=== PATIENT | female | born 1975 | race Caucasian/White ===

== ENCOUNTER 2017-01-14 19:53 | Emergency (ER) | payer BC ==
[~2017-01-14 19:53] MED LIST: ASPIRIN CHEWABL81 MG PO; IMDUR ER TAB 3030 MG PO; LISINOPRIL20 MG PO; METFORMIN HYDR500 GM PO; SINGULAIR10 MG PO; VENTOLIN/PROVE0.5 ML INH
[2017-01-14 21:37] LABS: HEMOGLOBIN 12.1 gm/dl (12.3-15.3); RED BLOOD COUNT 4.52 M/UL (4.00-5.10); WHITE BLOOD COUNT 9.7 K/UL (4.5-11.0)
[2017-01-14 21:53] LABS: BUN/CREATININE RATIO 21 (0-10)
[2017-04-25] MEDS ORDERED: DISULFIRAM PO (07:16)
[2017-04-25] MEDS ORDERED: PROTONIX40 MG PO (07:16)
[2017-04-25] MEDS ORDERED: NAPROSYN500 MG PO (11:05)
[2017-04-25] MEDS ORDERED: DOSS PO (11:07)
[2017-04-25] MEDS ORDERED: ZOFRAN4 MG PO (11:08)
[2017-04-25] MEDS ORDERED: PERCOCET 5-3251 EACH PO (11:08)
== END 2017-01-15 00:20 | disposition home or self-care (01) ==
LOC: ER1 19:53
PROVIDERS: Physician Assistant
DX: N93.8 Other specified abnormal uterine and vaginal bleeding (principal); R10.2 Pelvic and perineal pain; R19.7 Diarrhea, unspecified; E11.9 Type 2 diabetes mellitus without complications; I10 Essential (primary) hypertension; Z88.8 Allergy status to other drugs, medicaments and biological substances; Z90.49 Acquired absence of other specified parts of digestive tract; Z79.899 Other long term (current) drug therapy
CPT/HCPCS: 36415; 80048; 80076; 81001; 83690; 84703; 85025; 87086; 99284

== ENCOUNTER 2017-02-05 19:56 | Emergency (ER) | payer BC ==
[2017-04-25] MEDS ORDERED: DISULFIRAM PO (07:16)
[2017-04-25] MEDS ORDERED: PROTONIX40 MG PO (07:16)
[2017-04-25] MEDS ORDERED: NAPROSYN500 MG PO (11:05)
[2017-04-25] MEDS ORDERED: DOSS PO (11:07)
[2017-04-25] MEDS ORDERED: ZOFRAN4 MG PO (11:08)
[2017-04-25] MEDS ORDERED: PERCOCET 5-3251 EACH PO (11:08)
== END 2017-02-05 21:45 | disposition left against medical advice (07) ==
LOC: ER1 19:56
DX: Z53.21 Procedure and treatment not carried out due to patient leaving prior to being seen by health care provider (principal)

== ENCOUNTER → 2017-04-02 | Outpatient (CLI) | payer BC ==
[~2017-04-02] MED LIST changes: +DISULFIRAM PO; +DOSS PO; +NAPROSYN500 MG PO; +PERCOCET 5-3251 EACH PO; +PROTONIX40 MG PO; +ZOFRAN4 MG PO
== END ==
LOC: EMI 07:30
DX: M25.561 Pain in right knee (principal); M17.11 Unilateral primary osteoarthritis, right knee
CPT/HCPCS: 73721

== ENCOUNTER 2020-12-13 20:42 | Emergency (ER) | payer OTHER ==
[2020-12-13] MEDS ORDERED: BACTRIM DS TAB1 EACH PO (21:13)
== END 2020-12-13 21:33 | disposition home or self-care (01) ==
LOC: ER1 20:42
DX: L03.116 Cellulitis of left lower limb (principal); E11.9 Type 2 diabetes mellitus without complications; I10 Essential (primary) hypertension; Z88.8 Allergy status to other drugs, medicaments and biological substances
CPT/HCPCS: 99282

== ENCOUNTER → 2021-01-24 | Outpatient (CLI) | payer BC, OTHER ==
[~2021-01-24] MED LIST changes: +BACTRIM DS TAB1 EACH PO
== END ==
LOC: EXRD 14:26
DX: M79.605 Pain in left leg (principal)
CPT/HCPCS: 93971

== ENCOUNTER → 2021-02-13 | Outpatient (CLI) | payer BC, OTHER | LOC: KOH-I 09:53 | DX: M79.662 Pain in left lower leg (principal); Z47.89 Encounter for other orthopedic aftercare | CPT/HCPCS: 73590 ==

== ENCOUNTER 2021-05-13 18:24 | Emergency (ER) | payer BC ==
[~2021-05-13 18:24] MED LIST changes: -PROTONIX40 MG PO
[2021-05-13 20:08] LABS: HEMOGLOBIN 11.7 gm/dl (12.3-15.3); RED BLOOD COUNT 4.39 M/UL (4.00-5.10); WHITE BLOOD COUNT 4.3 K/UL (4.5-11.0)
[2021-05-13 20:30] LABS: BUN/CREATININE RATIO 11 (0-10)
[2021-05-13] MEDS ORDERED: PREDNISONE50 MG PO (23:54)
[2021-05-13] MEDS ORDERED: VENTOLIN/PROVE0.5 ML INH (23:54)
== END 2021-05-14 00:31 | disposition home or self-care (01) ==
LOC: ER1 18:24
PROVIDERS: Physician Assistant Medical
DX: Z23 Encounter for immunization (principal); U07.1 COVID-19; J12.82 Pneumonia due to coronavirus disease 2019; J45.909 Unspecified asthma, uncomplicated; E11.9 Type 2 diabetes mellitus without complications; E78.5 Hyperlipidemia, unspecified; Z90.89 Acquired absence of other organs; Z88.8 Allergy status to other drugs, medicaments and biological substances
CPT/HCPCS: 71045; 80053; 85025; 99285; M0243; U0002

== ENCOUNTER 2021-05-16 14:12 | Inpatient (IN) | payer BC ==
[~2021-05-16] VITALS: Ht 171.4 cm; Wt 164.7 kg
[~2021-05-16 14:12] MED LIST changes: +PREDNISONE50 MG PO
[2021-05-16 15:39] LABS: HEMOGLOBIN 12.8 gm/dl (12.3-15.3); RED BLOOD COUNT 4.76 M/UL (4.00-5.10)
[2021-05-16 15:41] LABS: WHITE BLOOD COUNT 8.2 K/UL (4.5-11.0)
[2021-05-16 16:03] LABS: BUN/CREATININE RATIO 24 (0-10)
[2021-05-17 06:16] LABS: HEMOGLOBIN 12.3 gm/dl (12.3-15.3); RED BLOOD COUNT 4.63 M/UL (4.00-5.10); WHITE BLOOD COUNT 7.3 K/UL (4.5-11.0)
[2021-05-17 06:44] LABS: BUN/CREATININE RATIO 26 (0-10)
[2021-05-17] MEDS ORDERED: OMEPRAZOLE20 MG PO (07:16)
[2021-05-17] MEDS ORDERED: ALBUTEROL2.5 MG/3 M NEB (10:48)
[2021-05-17] MEDS ORDERED: MOBIC15 MG PO (10:49)
[2021-05-17] MEDS ORDERED: HYDROCHLOROTH12.5 MG PO (10:49)
[2021-05-17] MEDS ORDERED: RANEXA500 MG PO (10:50)
[2021-05-17] MEDS ORDERED: LOPRESSOR 25 MG25 MG PO (10:50)
[2021-05-17] MEDS ORDERED: SINGULAIR10 MG PO (10:50)
[2021-05-17] MEDS ORDERED: ROPINIROLE HCL2 MG PO (10:51)
[2021-05-17] MEDS ORDERED: ULTRAM50 MG PO (10:52)
[2021-05-17] MEDS ORDERED: CYCLOBENZAPRINE10 MG PO (11:10)
[2021-05-18 02:59] LABS: HEMOGLOBIN 11.2 gm/dl (12.3-15.3); RED BLOOD COUNT 4.26 M/UL (4.00-5.10); WHITE BLOOD COUNT 8.1 K/UL (4.5-11.0)
[2021-05-18 03:23] LABS: BUN/CREATININE RATIO 33 (0-10)
[2021-05-18 21:09] LABS: HIV-1 RNA BY PCR <20 (.)
[2021-05-19 03:10] LABS: HEMOGLOBIN 11.4 gm/dl (12.3-15.3); RED BLOOD COUNT 4.33 M/UL (4.00-5.10); WHITE BLOOD COUNT 7.8 K/UL (4.5-11.0)
[2021-05-19 03:31] LABS: BUN/CREATININE RATIO 34 (0-10)
[2021-05-20 05:03] LABS: HEMOGLOBIN 11.2 gm/dl (12.3-15.3); RED BLOOD COUNT 4.42 M/UL (4.00-5.10); WHITE BLOOD COUNT 8.2 K/UL (4.5-11.0)
[2021-05-20 05:42] LABS: BUN/CREATININE RATIO 29 (0-10)
[2021-05-21 03:59] LABS: HEMOGLOBIN 12.5 gm/dl (12.3-15.3); WHITE BLOOD COUNT 9.3 K/UL (4.5-11.0)
[2021-05-21 04:00] LABS: RED BLOOD COUNT 4.89 M/UL (4.00-5.10)
[2021-05-21 04:19] LABS: BUN/CREATININE RATIO 24 (0-10)
[2021-05-22 03:30] LABS: HEMOGLOBIN 12.8 gm/dl (12.3-15.3); RED BLOOD COUNT 4.98 M/UL (4.00-5.10); WHITE BLOOD COUNT 10.5 K/UL (4.5-11.0)
[2021-05-22 04:03] LABS: BUN/CREATININE RATIO 28 (0-10)
[2021-05-22] MEDS ORDERED: IPRATROPIU0.2 MG/1 M NEB (10:16)
[2021-05-22] MEDS ORDERED: ELIQUIS 5 MG TAB5 MG PO (10:16)
[2021-05-22] MEDS ORDERED: HYDRALAZINE HCL50 MG PO ×2 (10:16→12:29)
[2021-05-22] MEDS ORDERED: DECADRON6 MG PO (10:16)
[2021-05-22] MEDS ORDERED: LANTUS INS100 UTS/M1 SQ (10:16)
[2021-05-22] MEDS ORDERED: AMLODIPINE BESYL5 MG PO (10:16)
[2021-05-22] MEDS ORDERED: LEVALBUTER0.63 MG/3 NEB (10:16)
[2021-05-22] MEDS ORDERED: HUMALOG 10100 UNITS/ SC ×3 (10:16→14:01)
--- NOTE | 2021-05-22 10:36 | NUR ---
room air oxygen sat of 77%
[2021-05-22] MEDS ORDERED: DEX4 GLUCOSE4 GM PO (10:41)
== END 2021-05-22 15:08 | disposition home or self-care (01) | DRG 177 ==
LOC: ER1 14:12 → PROG CARE 17:23 → CDU 17:23 → PROG CARE 05-17 18:54
PROVIDERS: Emergency Medicine; Internal Medicine; ADMIT Internal Medicine
PROC: 3E0333Z Introduction of Anti-inflammatory into Peripheral Vein, Percutaneous Approach (ICD-10-PCS; 2021-05-16)
PROC: 30233N1 Transfusion of Nonautologous Red Blood Cells into Peripheral Vein, Percutaneous Approach (ICD-10-PCS; principal; 2021-05-17)
PROC: B24BZZ4 Ultrasonography of Heart with Aorta, Transesophageal (ICD-10-PCS; 2021-05-17)
PROC: 8E0ZXY6 Isolation (ICD-10-PCS; 2021-05-17)
PROC: XW033E5 Introduction of Remdesivir Anti-infective into Peripheral Vein, Percutaneous Approach, New Technology Group 5 (ICD-10-PCS; 2021-05-17)
DX: U07.1 COVID-19 (principal); J96.01 Acute respiratory failure with hypoxia; J12.82 Pneumonia due to coronavirus disease 2019; J15.9 Unspecified bacterial pneumonia; I26.99 Other pulmonary embolism without acute cor pulmonale; Z68.44 Body mass index [BMI] 60.0-69.9, adult; J45.909 Unspecified asthma, uncomplicated; G25.81 Restless legs syndrome; M19.90 Unspecified osteoarthritis, unspecified site; C44.81 Basal cell carcinoma of overlapping sites of skin; E66.01 Morbid (severe) obesity due to excess calories; E28.2 Polycystic ovarian syndrome; I16.0 Hypertensive urgency; K21.9 Gastro-esophageal reflux disease without esophagitis; E11.65 Type 2 diabetes mellitus with hyperglycemia; R00.0 Tachycardia, unspecified; I10 Essential (primary) hypertension; J45.20 Mild intermittent asthma, uncomplicated; G43.909 Migraine, unspecified, not intractable, without status migrainosus; G47.33 Obstructive sleep apnea (adult) (pediatric); Z82.49 Family history of ischemic heart disease and other diseases of the circulatory system; Z88.8 Allergy status to other drugs, medicaments and biological substances; Z87.01 Personal history of pneumonia (recurrent); Z90.49 Acquired absence of other specified parts of digestive tract; Z79.4 Long term (current) use of insulin; Z86.711 Personal history of pulmonary embolism
CPT/HCPCS: ECHO; 36415; 36600; 71045; 80053; 81001; 82550; 82553; 82803; 82962; 83036; 83605; 83735; 83874; 83880; 84484; 84703; 85025; 85027; 85379; 85652; 85730; 86900; 86901; 86927; 87040; 87536; 93005; 93306; 93970; 94640; 94664; 94760; 99285; G0378; J0360; J0696; J1100; J1644; J1650; J1940; J7030; J7050; M0243; Q9967; U0002

== ENCOUNTER → 2021-06-22 | Outpatient (CLI) | payer BC ==
[~2021-06-22] MED LIST changes: +ALBUTEROL2.5 MG/3 M NEB; +AMLODIPINE BESYL5 MG PO; +CYCLOBENZAPRINE10 MG PO; +DECADRON6 MG PO; +DEX4 GLUCOSE4 GM PO; +ELIQUIS 5 MG TAB5 MG PO; +HUMALOG 10100 UNITS/ SC; +HYDRALAZINE HCL50 MG PO; +HYDROCHLOROTH12.5 MG PO; +IPRATROPIU0.2 MG/1 M NEB; +LANTUS INS100 UTS/M1 SQ; +LEVALBUTER0.63 MG/3 NEB; +LOPRESSOR 25 MG25 MG PO; +MOBIC15 MG PO; +OMEPRAZOLE20 MG PO; +RANEXA500 MG PO; +ROPINIROLE HCL2 MG PO; +ULTRAM50 MG PO
== END ==
LOC: EXRD 13:32
DX: U07.1 COVID-19 (principal)
CPT/HCPCS: 71046

== ENCOUNTER → 2021-07-08 | Outpatient (CLI) | payer BC | LOC: SLEEP 10:31 | DX: G47.33 Obstructive sleep apnea (adult) (pediatric) (principal) | CPT/HCPCS: 95810 ==

== ENCOUNTER → 2021-07-10 | Outpatient (CLI) | payer BC | LOC: KOH-I 14:43 | DX: J18.8 Other pneumonia, unspecified organism (principal) | CPT/HCPCS: 71046 ==

== ENCOUNTER 2021-08-17 18:53 | Emergency (ER) | payer SELFPAY ==
[2021-08-17 21:52] LABS: HEMOGLOBIN 13.2 gm/dl (12.3-15.3); RED BLOOD COUNT 4.62 M/UL (4.00-5.10); WHITE BLOOD COUNT 12.5 K/UL (4.5-11.0)
[2021-08-17 22:35] LABS: BUN/CREATININE RATIO 20 (0-10)
== END 2021-08-18 04:55 | disposition home or self-care (01) ==
LOC: ER1 18:53
PROVIDERS: Physician Assistant
DX: R06.02 Shortness of breath (principal); G47.30 Sleep apnea, unspecified; J45.909 Unspecified asthma, uncomplicated; Z85.828 Personal history of other malignant neoplasm of skin
CPT/HCPCS: 71045; 80053; 82550; 82553; 83874; 83880; 84484; 85025; 85379; 85652; 86140; 93005; 99285; Q9967

== ENCOUNTER 2021-10-17 15:46 | Emergency (ER) | payer SELFPAY ==
[2021-10-17 17:07] LABS: HEMOGLOBIN 13.7 gm/dl (12.3-15.3); RED BLOOD COUNT 5.1 M/UL (4.00-5.10); WHITE BLOOD COUNT 13.9 K/UL (4.5-11.0)
[2021-10-17 17:34] LABS: BUN/CREATININE RATIO 14 (0-10)
[2021-10-17] MEDS ORDERED: BAYER CHEWABLE81 MG PO (23:08)
[2021-10-17] MEDS ORDERED: NITROSTAT0.4 MG SL (23:08)
== END 2021-10-17 23:30 | disposition home or self-care (01) ==
LOC: ER1 15:46
PROVIDERS: Physician Assistant
DX: R07.89 Other chest pain (principal); E11.9 Type 2 diabetes mellitus without complications; I10 Essential (primary) hypertension; Z85.828 Personal history of other malignant neoplasm of skin
CPT/HCPCS: 71045; 80053; 82550; 82553; 83874; 84484; 85025; 93005; 99285

== ENCOUNTER 2021-11-09 18:15 | Emergency (ER) | payer OTHER ==
[~2021-11-09 18:15] MED LIST changes: +BAYER CHEWABLE81 MG PO; +NITROSTAT0.4 MG SL
== END 2021-11-09 21:15 | disposition home or self-care (01) ==
LOC: ER1 18:15
DX: S09.90XA Unspecified injury of head, initial encounter (principal); S00.83XA Contusion of other part of head, initial encounter; S70.01XA Contusion of right hip, initial encounter; Z79.01 Long term (current) use of anticoagulants; I10 Essential (primary) hypertension; E11.9 Type 2 diabetes mellitus without complications; Z86.718 Personal history of other venous thrombosis and embolism; W01.0XXA Fall on same level from slipping, tripping and stumbling without subsequent striking against object, initial encounter; Y92.009 Unspecified place in unspecified non-institutional (private) residence as the place of occurrence of the external cause
CPT/HCPCS: 70450; 70486; 73502; 73552; 99284

== ENCOUNTER 2022-04-05 11:51 | Emergency (ER) | payer OTHER ==
[2022-04-05 13:07] LABS: HEMOGLOBIN 13.6 gm/dl (12.3-15.3); RED BLOOD COUNT 5.04 M/UL (4.00-5.10); WHITE BLOOD COUNT 11.2 K/UL (4.5-11.0)
[2022-04-05 14:22] LABS: BUN/CREATININE RATIO 27 (0-10)
== END 2022-04-05 16:31 | disposition home or self-care (01) ==
LOC: ER1 11:51
PROVIDERS: Emergency Medicine
DX: J44.1 Chronic obstructive pulmonary disease with (acute) exacerbation (principal); E11.9 Type 2 diabetes mellitus without complications; I10 Essential (primary) hypertension; Z20.822 Contact with and (suspected) exposure to COVID-19
CPT/HCPCS: 71045; 80048; 84484; 84703; 85025; 85610; 85730; 86140; 93005; 99285; Q9967; U0002

== ENCOUNTER 2022-06-03 12:49 | Emergency (ER) | payer OTHER ==
[2022-06-03 13:28] LABS: HEMOGLOBIN 12.9 gm/dl (12.3-15.3); RED BLOOD COUNT 4.82 M/UL (4.00-5.10); WHITE BLOOD COUNT 10.5 K/UL (4.5-11.0)
[2022-06-03 13:50] LABS: BUN/CREATININE RATIO 20 (0-10)
[2022-06-03] MEDS ORDERED: DIFLUCAN150 MG PO (15:43)
== END 2022-06-03 16:21 | disposition home or self-care (01) ==
LOC: ER1 12:49
PROVIDERS: Physician Assistant
DX: U07.1 COVID-19 (principal); J45.901 Unspecified asthma with (acute) exacerbation; B37.3 Candidiasis of vulva and vagina; E11.65 Type 2 diabetes mellitus with hyperglycemia; E78.5 Hyperlipidemia, unspecified; I10 Essential (primary) hypertension; Z85.828 Personal history of other malignant neoplasm of skin; Z88.8 Allergy status to other drugs, medicaments and biological substances
CPT/HCPCS: 0240U; 71045; 80053; 81001; 82550; 82553; 82962; 84484; 85025; 87086; 93005; 96361; 96374; 99285